=== PATIENT | male | born 1960 | race Caucasian/White ===

== ENCOUNTER → 2018-09-17 | Outpatient (CLI) | payer BC ==
[~2018-09-17] VITALS: Ht 175.3 cm; Wt 80.7 kg
[~2018-09-17] MED LIST: AMBIEN 5 MG TABL5 M1 PO; ATORVASTATIN CA40 MG PO; CIMETIDINE200 MG PO; LOSARTAN-HCTZ1 EAC1 PO
== END | disposition home or self-care (01) ==
LOC: GI 07:23
DX: K44.9 Diaphragmatic hernia without obstruction or gangrene (principal); K21.9 Gastro-esophageal reflux disease without esophagitis; I10 Essential (primary) hypertension; G47.33 Obstructive sleep apnea (adult) (pediatric); E78.5 Hyperlipidemia, unspecified; Z98.890 Other specified postprocedural states; Z98.52 Vasectomy status; Z79.899 Other long term (current) drug therapy
CPT/HCPCS: 62110; 62900

== ENCOUNTER → 2018-09-20 | Outpatient (CLI) | payer BC | LOC: RAD 09:43 | DX: K21.9 Gastro-esophageal reflux disease without esophagitis (principal); R12 Heartburn ==